=== PATIENT | male | born 1975 | race Caucasian/White ===

== ENCOUNTER 2022-04-09 07:58 | Day surgery (SDC) | payer OTHER, SELFPAY ==
[2022-04-09] VITALS (7 sets, daily range): BP systolic 127–149; BP diastolic 86–105; PULSE 74–100; RESP 11–16; TEMP 36.4–36.8; O2SAT 96–100; BMI 26.6
--- NOTE | 2022-04-09 | PATH_ITS ---
[facility] Accession Number: [id number] No. of containers..02 Tissue . 01 Material submitted: . PART A: colon - DESCENDING COLON POLYP PART B: rectum - RECTUM POLYP . 01 Diagnosis: A. Descending Colon, Polyp, Biopsy: Tubular adenoma. . B. Rectum, Polyp, Biopsy: Tubular adenoma. MRV 04/10/2022 1723 Local . 01 Electronically signed: . Joyce Donohue MD, Pathologist NPI- [id number] . 01 Gross description: . Part A: DESCENDING COLON POLYP: Received in formalin is 1 fragment(s) of doyle, soft tissue measuring 0.4 x 0.1 x 0.1 cm submitted entirely in 1 cassette(s) Part B: RECTUM POLYP: Received in formalin is 1 fragment(s) of doyle, soft tissue measuring 0.2 x 0.2 x 0.2 cm submitted entirely in 1 cassette(s) /KENROY 04/09/2022 2230 Local . 01 Pathologist provided ICD-10: D12.4, D12.8 . 01 CPT . 334046, 617779 Specimen Comment: A courtesy copy of this report has been sent to [phone] Performed at: 01 [facility] [address] [place] [address], [place], [place] [id number] MD Ronal Murphy MD Phone: [phone]
[2022-04-09] MEDS: LACTATED RINGERS 1,000 ML 42 ML IV (08:37)
--- NOTE | 2022-04-09 08:43 | PM.HP.1 ---
History of Present Illness History of Present Illness Date Patient Seen: 04/09/22 Time Patient Seen: 08:43 Chief complaint: Colonoscopy Narrative: I reviewed my office note. Patient presents for colon cancer screening. Patient History Medical History Asthma Family & Social History Social History: household members spouse Tobacco & Substance use: Tobacco type smokeless tobacco Smoking Status Former smoker alcohol intake current alcohol intake frequency a few times a week Substance Use Type does not use Meds Home Medications and Allergies Home Medications Medication Instructions Recorded Confirmed Type albuterol sulfate 90 mcg/actuation 2 puff inhalation Q4-6H PRN 04/09/22 04/09/22 History aerosol inhaler Shortness Of Breath fluticasone propionate 50 1 spray intranasal DAILY PRN 04/09/22 04/09/22 History mcg/actuation nasal Allergy Symptoms spray,suspension lisinopril 2.5 mg tablet 2.5 mg PO DAILY 04/09/22 04/09/22 History trazodone 100 mg tablet 100 mg PO BEDTIME 04/09/22 04/09/22 History Allergies Allergy/AdvReac Type Severity Reaction Status Date / Time codeine Allergy Severe shortness Verified 04/09/22 08:13 of breath Review of Systems Review of Systems ROS: Yes All systems reviewed with the patient and are negative except as otherwise documented Exam Vital Signs (past 8 hours): - 04/09/22 08:24 Temperature 98.3 F Pulse Rate 100 H Respiratory Rate 16 Blood Pressure 145/102 H Pulse Oximetry 100 Oxygen Delivery Method Room Air Oxygen Delivery Method Room Air Const General: cooperative HENMT Head: normal to inspection Eyes General: appearance normal, both eyes and all related structures Neck Neck: normal visual inspection Chest Chest: normal inspection of the chest Resp Effort & Inspection: normal respiratory effort Cardio Rate: regular rate GI Inspection: normal to inspection Skin General: no rashes or lesions noted Neuro General: patient alert and patient awake Extrem General: normal to inspection and no pedal edema Psych Appearance: grossly normal Assessment & Plan Assessment & Plan narrative: 46-year-old male with family history of small bowel cancer. Unknown histology. Colon cancer screening with colonoscopy is pursued today. Time Spent With Patient Critical Care time: I spent a total of [] minutes of critical care time on this patient's care today; this time is exclusive of procedural time.
[2022-04-09 09:06] LABS: COVID19 -Nasal RAPID Negative (Negative)
--- NOTE | 2022-04-09 09:18 | PM.PREOP ---
Pre-operative Note COVID-19 COVID-19 status: Negative Result date/Date tested (Pos, Neg/Pending): 04/09/22 Criteria for continued procedure: Possibility delay results in more complex future surgery or treatment Interval Note History & Physical reviewed/Exam performed by Physician: Yes Changes to H&P: No ASA Class (for procedural sedation): II
--- NOTE | 2022-04-09 09:40 | PM.OP.COLON ---
Operative Date/Time/Diagnoses Date of procedure: 04/09/22 Time of procedure: 09:40 Pre-op diagnosis: Colon cancer screening Post-op diagnosis: same Procedure & Clinicians Study performed: Colonoscopy with cold forceps polypectomy Same procedure as scheduled: Yes Indications: Colon cancer screening Surgeon: Zan Rojas Procedure Notes SCOAP/Timeout: Done Procedure in detail: After the risks and benefits were explained, written and verbal informed consent was obtained. The patient was brought into the procedure room and placed into the left lateral decubitus position. Please see nurse collar padder blindstitch notes for sedation details. Digital rectal examination was accomplished. The scope was introduced into the patient and advanced under direct visualization to the cecum as identified by the appendiceal orifice and ileocecal valve. The scope was slowly withdrawn to carefully examine the mucosa for any defects or lesions. Comprehensive imaging was accomplished throughout the rectum including the dentate line. The colon was decompressed, the scope was then removed from the patient who tolerated the procedure well. Adult colonoscope Bowel prep adequate Scope withdrawal time: 8 minutes Sedation minutes: 15 Complications: none Impression: There was a diminutive polyp in the ascending colon and in the rectum both removed with cold forceps. No additional mucosal pathology was appreciated throughout. On digital rectal exam there was perhaps mild prostatic hypertrophy noted. Endoscopic diagnosis 1. Colon polyps 2. Mild prostate hypertrophy Post-procedure Plan for aftercare: 1. Await histopathology. 2. Surveillance timing will be contingent on pathology results. 3. Follow up on prostate Health in primary care. Disposition: PACU
== END 2022-04-09 10:15 | disposition home or self-care (01) ==
PROVIDERS: PCP Physician Assistant Medical; Referring Provider Internal Medicine Gastroenterology; Visit Provider Internal Medicine Gastroenterology
PROC: 0DJD8ZZ Inspection of Lower Intestinal Tract, Via Natural or Artificial Opening Endoscopic (ICD-10-PCS; CPT 45378; principal; 2022-04-09 09:00)
DX: Z12.11 Encounter for screening for malignant neoplasm of colon (principal); I10 Essential (primary) hypertension; N40.0 Benign prostatic hyperplasia without lower urinary tract symptoms; J45.909 Unspecified asthma, uncomplicated; D12.4 Benign neoplasm of descending colon; K62.1 Rectal polyp; Z20.822 Contact with and (suspected) exposure to COVID-19
CPT/HCPCS: 45380; 87635; C9803; J2704